=== PATIENT | female | born 1985 | race Caucasian/White ===

== ENCOUNTER 2022-02-09 10:00 | Emergency (ER) | payer MEDICAID, SELFPAY ==
[2022-02-09 10:23] VITALS: BP 129/82; PULSE 102; RESP 12; TEMP 36.9; O2SAT 95; BMI 32.4
--- NOTE | 2022-02-09 12:47 | CRLHL7_ITS ---
For Patients: As a result of the Cures Act, medical imaging exams and procedure reports are released immediately into your electronic medical record. You may view this report before your referring provider. If you have questions, please contact your health care provider. Indication: Pain, swelling. Technique: Right wrist 3 view. Comparison: None. Findings: No acute fracture or dislocation. Joint spaces are preserved. Soft tissues are unremarkable. Impression: No acute findings. Dictated by Demi Botello MD @ 02/09/2022 2:09:01 PM (Electronically Signed)
--- NOTE | 2022-02-09 12:47 | CRLHL7_ITS ---
For Patients: As a result of the Cures Act, medical imaging exams and procedure reports are released immediately into your electronic medical record. You may view this report before your referring provider. If you have questions, please contact your health care provider. Indication: Swelling, pain. Technique: Right hand 3 views. Comparison: None. Findings: No acute fracture or dislocation. Joint spaces are preserved. Soft tissues are unremarkable. Impression: No acute findings. Dictated by Demi Botello MD @ 02/09/2022 2:07:20 PM (Electronically Signed)
--- NOTE | 2022-02-09 12:48 | ED_ITS ---
HPI - General Adult General Chief complaint: Extremity Pain/Injury, Upper Stated complaint: Swollen painful right hand Time Seen by Provider: 02/09/22 10:59 History of Present Illness HPI narrative: This 36-year-old female comes in with pain and swelling in her right hand and wrist. She states that she woke up yesterday morning with these symptoms. She has pain with any kind of movement and has obvious swelling of her right hand and wrist. There is no increased erythema. She does not report any fevers. She has not had any strenuous activity or injury event to explain these symptoms. She does not describe any neck pain. She did have a suspicion in the past for carpal tunnel syndrome. Related Data Previous Rx's Medication Instructions Recorded cephalexin 500 mg capsule 500 mg PO TID 7 days #21 caps 02/09/22 hydrocodone 5 mg-acetaminophen 325 1 tab PO Q4-6H PRN pain #15 tabs 02/09/22 mg tablet methylprednisolone 4 mg tablets in See Rx Instructions PO .COMPLEX 02/09/22 a dose pack (Medrol (Marcell)) #21 ea Allergies Allergy/AdvReac Type Severity Reaction Status Date / Time No Known Drug Allergies Allergy Verified 02/09/22 10:28 Review of Systems Status of ROS: Reports: 10 or more systems reviewed and unremarkable except as noted in History and below Narrative: Constitutional: No fevers, no weight gain or loss. Eyes: No discharge. No vision changes. HENT: No congestion, no sore throat, no ear pain. Cardiovascular: No chest pain, no palpitations. Respiratory: No shortness of breath, no wheezes, no cough. Gastrointestinal: No abdominal pain, no vomiting, no diarrhea. Genitourinary: No dysuria, no hematuria. Musculoskeletal: Right hand and wrist pain with swelling. Range of motion is decreased as she has pain with any kind of movement. Skin: No rashes, no pruritis. Neurological: No dizziness, weakness, sensory change, speech change. Endo/Heme/Allergies: No bruising or bleeding. No polydipsia. Pysch: no suicidality, no anxiety, no insomnia. All other systems reviewed and are negative. PFSH PFSH Social History Smoking Status: Former smoker What tobacco products do you use: cigarettes Smoking quit date/years: <= 15 years ago How often do you have a drink containing alcohol: 4 or more times a week AUDIT-C Alcohol total score: 4 Non-prescribed substance use: denies use Exam Narrative: Exam Narrative: Constitutional: No fevers, no weight gain or loss. Eyes: No discharge. No vision changes. HENT: No congestion, no sore throat, no ear pain. Cardiovascular: No chest pain, no palpitations. Respiratory: No shortness of breath, no wheezes, no cough. Gastrointestinal: No abdominal pain, no vomiting, no diarrhea. Genitourinary: No dysuria, no hematuria. Musculoskeletal: Right hand, fingers, and wrist have diffuse swelling with distinct pain with any kind of movement of the wrist and finger joints. There is no erythema. Skin: No rashes, no pruritis. Neurological: No dizziness, weakness, sensory change, speech change. Endo/Heme/Allergies: No bruising or bleeding. No polydipsia. Pysch: no suicidality, no anxiety, no insomnia. All other systems reviewed and are negative. Const: Vital Signs, click to edit/add: Vital Signs - 24 hr 02/09/22 10:23 Temperature 98.4 F Pulse Rate [Pulse Oximeter] 102 H Respiratory Rate 12 Blood Pressure [Ri ght Upper Arm] 129/82 Pulse Oximetry 95 Oxygen Delivery Me thod Room Air Course Vital Signs Vital signs: Initial Vital Signs Temperature 98.4 F 02/09/22 10:23 Temperature Source Temporal Artery Scan 02/09/22 10:23 Pulse Rate 102 H 02/09/22 10:23 Pulse Rhythm 02/09/22 10:23 Respiratory Rate 12 02/09/22 10:23 Blood Pressure 129/82 02/09/22 10:23 Blood Pressure Mean 97 02/09/22 10:23 Blood Pressure Position Sitting 02/09/22 10:23 Pulse Oximetry 95 02/09/22 10:23 Oxygen Delivery Method 02/09/22 10:23 Vital Signs Temperature 98.4 F 02/09/22 10:23 Pulse Rate 102 H 02/09/22 10:23 Respiratory Rate 12 02/09/22 10:23 Blood Pressure 129/82 02/09/22 10:23 Pulse Oximetry 95 02/09/22 10:23 Oxygen Delivery Method 02/09/22 10:23 Temperature 98.4 F 02/09/22 10:23 Pulse Rate 102 H 02/09/22 10:23 Respiratory Rate 12 02/09/22 10:23 Blood Pressure 129/82 02/09/22 10:23 Pulse Oximetry 95 02/09/22 10:23 Oxygen Delivery Method 02/09/22 10:23 Medical Decision Making MDM Narrative Medical decision making narrative: This patient comes in with right hand and wrist pain. She does not have any injury event or strenuous activity to trigger these symptoms. She does not report any history of gout or family history of gout. She had trouble sleeping last night because of this discomfort. X-ray images show no sign of fracture or dislocation. Lab results also returned with normal white count, normal sed rate, and normal uric acid. Actually all lab results are in normal range. It is uncertain why this patient is having these symptoms but it is causing her ra ther significant pain. I did prescribe several medicines to potentially help her. She did receive a prescription for [place], Medrol Dosepak, and Keflex. She also received a wrist splint. Her symptoms are not typical for a a cellulitis but hopefully these medicines will cover what ever is causing it and bring resolution. I did instruct her regarding follow-up options if not improving or if worsening. Lab Data Labs: Lab Results 02/09/22 02/09/22 02/09/22 Range/Units 13:10 13:10 13:10 WBC 8.52 (4.50-11.00) K/uL RBC 4.30 (4.00-5.20) m/uL Hgb 14.1 (12.0-16.0) gm/dL Hct 41.8 (33.0-51.0) % MCV 97 (80-100) fL MCH 33 (26-34) pg MCHC 34 (32-36) gm/dL RDW Coeff of Jason 13.6 (11.5-15.5) % Plt Count 276 (140-440) K/uL Neut % (Auto) 66.8 (42.0-72.0) % Lymph % (Auto) 24.6 (20-44) % [place] % (Auto) 7.2 (0.0-11.0) % Eos % (Auto) 0.8 (0.0-7.0) % Baso % (Auto) 0.5 (0.0-3.0) % Neut # (Auto) 5.69 (1.7-7.0) K/uL Lymph # (Auto) 2.10 (0.90-2.90) K/uL [place] # (Auto) 0.60 (0.00-0.90) K/UL Eos # (Auto) 0.07 (0.00-0.50) K/uL Baso # (Auto) 0.04 (0.00-0.30) K/uL Abs Immat Gran (auto) 0.01 (0.00-0.30) K/uL ESR 18 (2-20) mm/hr Sodium 139 (135-149) mmol/L Potassium 3.8 (3.6-5.1) mmol/L Chloride 105 (96-114) mmol/L Carbon Dioxide 23 (20-32) mmol/L BUN 16 (5-24) mg/dL Creatinine 0.6 (0.5-1.5) mg/dL Estimated Creat Clear 114.09 Estimated GFR 121 ml/min Glucose 111 (60-115) mg/dL Uric Acid (2.2-8.4) mg/dL Calcium 9.6 (8.4-10.6) mg/dL 02/09/22 Range/Units 13:10 WBC (4.50-11.00) K/uL RBC (4.00-5.20) m/uL Hgb (12.0-16.0) gm/dL Hct (33.0-51.0) % MCV (80-100) fL MCH (26-34) pg MCHC (32-36) gm/dL RDW Coeff of Jason (11.5-15.5) % Plt Count (140-440) K/uL Neut % (Auto) (42.0-72.0) % Lymph % (Auto) (20-44) % Cris[place] % (Auto) (0.0-11.0) % Eos % (Auto) (0.0-7.0) % Baso % (Auto) (0.0-3.0) % Neut # (Auto) (1.7-7.0) K/uL Lymph # (Auto) (0.90-2.90) K/uL [place] # (Auto) (0.00-0.90) K/UL Eos # (Auto) (0.00-0.50) K/uL Baso # (Auto) (0.00-0.30) K/uL Abs Immat Gran (auto) (0.00-0.30) K/uL ESR (2-20) mm/hr Sodium (135-149) mmol/L Potassium (3.6-5.1) mmol/L Chloride (96-114) mmol/L Carbon Dioxide (20-32) mmol/L BUN (5-24) mg/dL Creatinine (0.5-1.5) mg/dL Estimated Creat Clear Estimated GFR ml/min Glucose (60-115) mg/dL Uric Acid 5.3 (2.2-8.4) mg/dL Calcium (8.4-10.6) mg/dL Imaging Data XR R Hand and Wrist: Radiologist's impression: No acute fracture or dislocation. Joint spaces are preserved. Soft tissues are unremarkable. Discharge Plan Discharge Clinical Impression: Right wrist pain Patient Disposition: Home, Self-Care Condition: Unchanged Additional Instructions: Wear wrist splint as needed. Take medications as needed and directed. Follow up with MD or return if worsening. Prescriptions: New hydrocodone-acetaminophen 5-325 mg tablet 1 tab PO Q4-6H PRN (Reason: pain) Qty: 15 0RF cephalexin 500 mg capsule 500 mg PO TID 7 Days Qty: 21 0RF methylprednisolone [Medrol (Marcell)] 4 mg tablets,dose pack See Rx Instructions .ROUTE .COMPLEX Qty: 21 0RF Rx Instructions: orally per package directions Follow Up/Referrals: Alexandria Cespedes MD [Primary Care Provider] - Stand Alone Forms: [employer] Info Instructions
[2022-02-09 13:21] LABS: Basophils Absolute Auto 0.04 K/uL (0.00-0.30); Basophils Percent Auto 0.5 % (0.0-3.0); Eosinophils Absolute Auto 0.07 K/uL (0.00-0.50); Eosinophils Percent Auto 0.8 % (0.0-7.0); Hematocrit 41.8 % (33.0-51.0); Hemoglobin* 14.1 gm/dL (12.0-16.0); Immature Granulocytes Abs Auto 0.01 K/uL (0.00-0.30); Lymphocytes Percent Auto 24.6 % (20-44); Mean Corpuscular HGB Conc 34 gm/dL (32-36); Mean Corpuscular Hemoglobin 33 pg (26-34); Mean Corpuscular Volume 97 fL (80-100); Monocytes Percent Auto 7.2 % (0.0-11.0); Neutrophils Absolute Auto 5.69 K/uL (1.7-7.0); Neutrophils Percent Auto 66.8 % (42.0-72.0); Platelet Count* 276 K/uL (140-440); RDW Coefficient of Variation % 13.6 % (11.5-15.5); White Blood Count* 8.52 K/uL (4.50-11.00)
[2022-02-09 13:22] LABS: Slide Review Reflex No
[2022-02-09 13:37] LABS: Chloride* 105 mmol/L (96-114)
[2022-02-09 13:38] LABS: Potassium* 3.8 mmol/L (3.6-5.1); Sodium* 139 mmol/L (135-149)
[2022-02-09 13:40] LABS: Creatinine* 0.6 mg/dL (0.5-1.5); Est. Creatinine Clearance* 114.09; Estimated Glomerular Filt Rate 121 ml/min
[2022-02-09 13:41] LABS: Blood Urea Nitrogen* 16 mg/dL (5-24); Calcium* 9.6 mg/dL (8.4-10.6); Carbon Dioxide* 23 mmol/L (20-32); Glucose* 111 mg/dL (60-115)
[2022-02-09 14:27] LABS: Uric Acid* 5.3 mg/dL (2.2-8.4)
[2022-02-09 14:31] LABS: Erythrocyte SedimentationRate* 18 mm/hr (2-20)
== END 2022-02-09 15:16 | disposition home or self-care (01) ==
PROVIDERS: Emergency Provider Emergency Medicine Emergency Medical Services; PCP Family Medicine
DX: M25.531 Pain in right wrist (principal)
CPT/HCPCS: 29125; 36415; 73110; 73130; 80048; 84550; 85025; 85651; 99284

== ENCOUNTER 2024-03-10 13:08 | Emergency (ER) | payer BC, SELFPAY ==
[2024-03-10 13:19] VITALS: BP 149/107; PULSE 73; RESP 22; TEMP 36.6; O2SAT 97; BMI 33.3
--- NOTE | 2024-03-10 13:45 | ED_ITS ---
HPI - Chest Pain General Time Seen by Provider: 13:45 Date Seen: 03/10/24 Chief Complaint: Chest Pain Stated Complaint: Chest pain, tunnel vision, high BP Time Seen by Provider: 03/10/24 13:19 Source: patient and RN notes reviewed Mode of arrival: ambulatory Limitations: no limitations History of Present Illness HPI narrative: This 38-year-old female is coming in after an episode that happened around 12:30 p.m. today. 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 She started to feel sweaty. She then had a brief episode where there was severe squeezing type substernal chest pain. She was able to maintain driving, this went away within about 30 seconds. She did feel some shortness of breath afterwards. Her is studying for [employer], she talked to him after she got home. She did have a fall and tripped landing on concrete stairs on the 6th, 2 days ago. She had bruising of her right right hip area, bruised her left knee. She really did not think too much of this except when she had this spell, her thought of possible blood clots. They decided to come in to get checked out. She has never had anything like this in the past. The chest pain and did not initiate this episode, came at the end of it. She has had no calf pain or swelling. Her has had vasectomy, no chance for . She is not using any contraceptives. Related Data Home Medications ?Medication ?Instructions ?Recorded ?Confirmed dextromethorphan-guaifenesin 10 2 tab-cap PO Q6H PRN 08/14/22 12/19/23 mg-200 mg capsule (Coricidin HBP Chest Congestion-Cough) Previous Rx's ?Medication ?Instructions ?Recorded albuterol sulfate 90 mcg/actuation 2 puff inhalation Q6H PRN 08/08/22 aerosol inhaler shortness of breath or wheezing #6.7 grams benzonatate 200 mg capsule 200 mg PO BID-TID PRN cough #14 08/08/22 caps Allergies Allergy/AdvReac Type Severity Reaction Status Date / Time No Known Drug Allergies Allergy Verified 03/10/24 14:26 Review of Systems Status of ROS Reports: 6 or more systems reviewed and unremarkable except as noted in History and below [facility] Social History Smoking Status: Former smoker What tobacco products do you use: cigarettes Smoking quit date/years: <= 15 years ago How often do you have a drink containing alcohol: 4 or more times a week AUDIT-C Alcohol total score: 4 Non-prescribed substance use: denies use Exam Const Vital Signs, click to edit/add: Vital Signs - 24 hr 03/10/24 13:19 03/10/24 13:53 Temperature 98 F Pulse Rate [Pulse Oximeter] 73 Respiratory Rate 22 Blood Pressure [Right Upper Arm] 149/107 H Pulse Oximetry 97 98 Oxygen Delivery Method Room Air Marline is a very pleasant 38-year-old female, she is alert, interactive, no apparent distress. Pupils equal round, sclera clear, conjugate gaze. Symmetrical facial function, speech normal. Lungs are clear, good air entry, no wheezing or crackles, no tachypnea. CV regular rate and rhythm, no murmur, normal S1-S2 no S3-S4. Abdomen is soft, nontender. She has no pretibial edema, no calf tenderness. Patient was ambulatory into the ED of her own accord. Documenting provider has reviewed patient's vital signs: yes Course Course ED Course: This 38-year-old female is presenting with what sounds to be presyncope. This does not sound like this is anxiety or panic attack given the presentation of the symptoms. Have discussed with her doing the D-dimer and waiting to see what the result is, upon review of this she has opted to just do the chest CT PE protocol which I think is reasonable in this situation as workup for presyncope. She did have recent trauma and it is there medical that there could have been a blood clot that caused a pulmonary embolus with some resolution already. Will obtain a troponin. She is aware that she will need a follow-up troponin about 3:30 p.m. for 3 hour interval. Right now she is hemodynamically stable but will have her on cardiac monitoring and pulse oximetry while here. Will follow the cardiac monitoring to ensure no arrhythmia. Reevaluation(s) Time of Reevaluation #1: 15:22 Reevaluation #1: Have reviewed normal labs to this point with patient. Chest CT is not showing any pulmonary emboli. Did review the secondary finding of the pneumonitis. She has not been sick with anything, no cough or cold symptoms. I would favor observation given normal labs and no evidence of infection. This is likely not evidence of any active pneumonia. She is aware if she does start coughing or becoming ill, needs re-evaluation for potential pneumonia and consideration of antibiotics. We discussed that she would get her follow-up troponin shortly here, if normal discharge to home. I would consider this presyncope and in evaluation of presyncope or syncope, recurrent episode do need to be re- evaluated. Time of Reevaluation #2: 16:04 Reevaluation #2: Follow-up troponin is normal, patient will discharge to home. Vital Signs Vital signs: Initial Vital Signs Temperature 98 F 03/10/24 13:19 Temperature Source Temporal Artery Scan 03/10/24 13:19 Pulse Rate 73 03/10/24 13:19 Pulse Rhythm Regular 03/10/24 13:19 Respiratory Rate 22 03/10/24 13:19 Blood Pressure 149/107 H 03/10/24 13:19 Blood Pressure Mean 121 H 03/10/24 13:19 Blood Pressure Position Supine 03/10/24 13:19 Pulse Oximetry 97 03/10/24 13:19 Oxygen Delivery Method Room Air 03/10/24 13:19 Vital Signs Temperature 98 F 03/10/24 13:19 Pulse Rate 73 03/10/24 13:19 Respiratory Rate 22 03/10/24 13:19 Blood Pressure 149/107 H 03/10/24 13:19 Pulse Oximetry 97 03/10/24 13:19 Oxygen Delivery Method Room Air 03/10/24 13:19 Temperature 98 F 03/10/24 13:19 Pulse Rate 73 03/10/24 13:19 Respiratory Rate 22 03/10/24 13:19 Blood Pressure 149/107 H 03/10/24 13:19 Pulse Oximetry 98 03/10/24 13:53 Oxygen Delivery Method Room Air 03/10/24 13:19 MDM - Chest Pain Lab Data Attestation: I reviewed the patient's lab results. Labs: Lab Results 03/10/24 03/10/24 03/10/24 Range/Units 13:54 14:24 15:30 WBC 7.70 (4.50-11.00) K/uL RBC 4.24 (4.00-5.20) m/uL Hgb 13.8 (12.0-16.0) gm/dL Hct 41.3 (33.0-51.0) % MCV 97 (80-100) fL MCH 33 (26-34) pg MCHC 33 (32-36) gm/dL RDW Coeff of Jsaon 13.0 (11.5-15.5) % Plt Count 207 (140-440) K/uL Neut % (Auto) 62.0 (42.0-72.0) % Lymph % (Auto) 30.0 (20-44) % [place] % (Auto) 6.6 (0.0-11.0) % Eos % (Auto) 1.0 (0.0-7.0) % Baso % (Auto) 0.4 (0.0-3.0) % Neut # (Auto) 4.77 (1.7-7.0) K/uL Lymph # (Auto) 2.31 (0.90-2.90) K/uL [place] # (Auto) 0.50 (0.00-0.90) K/UL Eos # (Auto) 0.08 (0.00-0.50) K/uL Baso # (Auto) 0.03 (0.00-0.30) K/uL Abs Immat Gran (auto) 0.00 (0.00-0.30) K/uL Imm/Tot Granulo (auto) 0.0 % D-Dimer Quant (PE/DVT) < 0.27 (0.00-0.50) ug/ml VBG pH 7.382 (7.32-7.43) VBG pCO2 45 (40-50) mmHG VBG pO2 31.0 (25-47) mmHG VBG HCO3 27 (21-28) mmol/L Sodium 137 (135-149) mmol/L Potassium 4.0 (3.6-5.1) mmol/L Chloride 101 (96-114) mmol/L Carbon Dioxide 25 (20-32) mmol/L Anion Gap 11 (7-15) mEq/L BUN 12 (5-24) mg/dL Creatinine 0.5 (0.5-1.5) mg/dL Estimated Creat Clear 139.97 Estimated GFR 125 ml/min Glucose 95 (60-115) mg/dL Calcium 9.3 (8.4-10.6) mg/dL Total Bilirubin 0.4 (0.1-1.5) mg/dL AST 23 (12-35) U/L ALT 28 (4-35) U/L Alkaline Phosphatase 82 (40-150) U/L Troponin I < 0.01 L (0.01-0.04) ng/mL NT-Pro-B Natriuret Pep 32 pg/mL Total Protein 7.7 (6.0-8.3) g/dL Albumin 4.7 (3.3-5.0) g/dL POC Troponin I 0.00 L 0.00 L (0.01-0.04) ng/ml Imaging Data CT scan - chest: Attestation: I have reviewed the pertinent imaging results. Radiologist's impression: Patient: MARLINE KOWALSKI Facility:?[facility] Patient ID:?[id number] Site Patient ID:?[id number]. Site :?[id number] Study:?CT-Chest Angio PE 95CC ISOVUE 370-03/10/2024 2:34:28 PM Ordering Physician:?Yadiel Mcmillan Final Report: Indication: Presyncopal episode, tunnel vision, shortness of breath and chest pain Technique: Volumetric multidetector CT images of the chest were obtained after the administration of IV contrast. 95 cc Isovue 370 low osmolar intravenous contrast Comparison: None available. Findings: The thoracic inlet and thyroid gland are unremarkable. The thoracic aorta is nonaneurysmal. There is no central filling defect to suggest pulmonary embolism. There is no mediastinal, hilar or axillary adenopathy. There is mild central bronchial thickening. There is minimal basilar atelectasis and parenchymal scar with mild ground-glass opacity seen in the lower lobes which may represent minimal pneumonitis changes. There is a 4.5 millimeter pulmonary nodule along the right pleural convexity seen on series 6, image 95. The partially visualized upper abdominal viscera are within normal limits. The thoracic vertebral body heights are grossly maintained with mild multilevel degenerative disc disease. There is no significant spondylolisthesis or displaced fracture. Impression: Mild central bronchial thickening and dependent atelectasis with minimal likely pneumonitis changes. No evidence of pulmonary embolus or dense consolidation. Please note that all CT scans at this facility use dose modulation, iterative reconstruction, and/or weight-based dosing when appropriate to reduce radiation dose to as low as reasonably achievable. Dictated by Anthony Shane MD @ 03/10/2024 2:50:18 PM (Electronic Signature) ECG Data Attestation: I personally reviewed and interpreted this ECG as follows: (Normal sinus rhythm, 70 beats per minute. QT corrected for and 56 milliseconds. No ischemic change, no infarct.) ECG interpretation date: 03/10/24 ECG interpretation time: 13:46 Discharge Plan Discharge Clinical Impression: Pre-syncope Instructions: Syncope (ED), Near Syncope (ED) Additional Instructions: Please schedule follow-up with your primary care provider within the next week. If you have any recurrence of these symptoms, do recommend re-evaluation in the interim. I certainly would consider having you do outpatient monitoring with a ZIO patch if there is any evidence of further episodes. Activity Level: Activity as Tolerated Prescriptions: No Action Coricidin HBP Chest Arjun-Cough 10-200 mg capsule 2 tab-cap PO Q6H PRN albuterol sulfate 90 mcg/actuation HFA aerosol inhaler 2 puff inhalation Q6H PRN (Reason: shortness of breath or wheezing) Qty: 6.7 0RF benzonatate 200 mg capsule 200 mg PO BID-TID PRN (Reason: cough) Qty: 14 0RF Follow Up/Referrals: Alexandria Cesepdes MD [Primary Care Provider] - Stand Alone Forms: [employer] Info Instructions
[2024-03-10 13:53] VITALS: O2SAT 98
--- NOTE | 2024-03-10 13:53 | CRLHL7_ITS ---
For Patients: As a result of the Century Cures Act, medical imaging exams and procedure reports are released immediately into your electronic medical record. You may view this report before your referring provider. If you have questions, please contact your health care provider. Indication: Presyncopal episode, tunnel vision, shortness of breath and chest pain Technique: Volumetric multidetector CT images of the chest were obtained after the administration of IV contrast. 95 cc Isovue 370 low osmolar intravenous contrast Comparison: None available. Findings: The thoracic inlet and thyroid gland are unremarkable. The thoracic aorta is nonaneurysmal. There is no central filling defect to suggest pulmonary embolism. There is no mediastinal, hilar or axillary adenopathy. There is mild central bronchial thickening. There is minimal basilar atelectasis and parenchymal scar with mild ground-glass opacity seen in the lower lobes which may represent minimal pneumonitis changes. There is a 4.5 millimeter pulmonary nodule along the right pleural convexity seen on series 6, image 95. The partially visualized upper abdominal viscera are within normal limits. The thoracic vertebral body heights are grossly maintained with mild multilevel degenerative disc disease. There is no significant spondylolisthesis or displaced fracture. Impression: Mild central bronchial thickening and dependent atelectasis with minimal likely pneumonitis changes. No evidence of pulmonary embolus or dense consolidation. Please note that all CT scans at this facility use dose modulation, iterative reconstruction, and/or weight-based dosing when appropriate to reduce radiation dose to as low as reasonably achievable. Dictated by Anthony Shane MD @ 03/10/2024 2:50:18 PM (Electronically Signed)
[2024-03-10 14:32] LABS: HCO3 VBG 27 mmol/L (21-28); PCO2 VBG 45 mmHG (40-50); pH VBG 7.382 (7.32-7.43)
[2024-03-10 14:33] LABS: Basophils Absolute Auto 0.03 K/uL (0.00-0.30); Basophils Percent Auto 0.4 % (0.0-3.0); Eosinophils Absolute Auto 0.08 K/uL (0.00-0.50); Hematocrit 41.3 % (33.0-51.0); Hemoglobin* 13.8 gm/dL (12.0-16.0); Lymphocytes Absolute Auto 2.31 K/uL (0.90-2.90); Mean Corpuscular HGB Conc 33 gm/dL (32-36); Mean Corpuscular Hemoglobin 33 pg (26-34); Mean Corpuscular Volume 97 fL (80-100); Monocytes Percent Auto 6.6 % (0.0-11.0); Neutrophils Absolute Auto 4.77 K/uL (1.7-7.0); Platelet Count* 207 K/uL (140-440); Red Blood Count 4.24 m/uL (4.00-5.20)
[2024-03-10 14:37] LABS: Slide Review Reflex No
[2024-03-10 14:48] LABS: Albumin* 4.7 g/dL (3.3-5.0); Chloride* 101 mmol/L (96-114); Sodium* 137 mmol/L (135-149)
[2024-03-10 14:51] LABS: Alkaline Phosphatase* 82 U/L (40-150); Anion Gap 11 mEq/L (7-15); Aspartate Amino Transferase* 23 U/L (12-35); Bilirubin Total* 0.4 mg/dL (0.1-1.5); Blood Urea Nitrogen* 12 mg/dL (5-24); Carbon Dioxide* 25 mmol/L (20-32); Creatinine* 0.5 mg/dL (0.5-1.5); Est. Creatinine Clearance* 139.97; Estimated Glomerular Filt Rate 125 ml/min; Total Protein* 7.7 g/dL (6.0-8.3)
[2024-03-10 14:52] LABS: Alanine Aminotransferase* 28 U/L (4-35); Calcium* 9.3 mg/dL (8.4-10.6); Glucose* 95 mg/dL (60-115)
[2024-03-10 14:57] LABS: D Dimer Quantitative* < 0.27 ug/ml (0.00-0.50)
[2024-03-10 15:10] LABS: NT Pro B Type NatriureticPept* 32 pg/mL; Troponin I* < 0.01 ng/mL (0.01-0.04)
== END 2024-03-10 16:17 | disposition home or self-care (01) ==
PROVIDERS: Emergency Provider Family Medicine; PCP Family Medicine
DX: R55 Syncope and collapse (principal)
CPT/HCPCS: 36415; 71275; 80053; 82803; 83880; 84484; 85025; 85379; 93005; 99284; 99285; Q9967

== ENCOUNTER 2024-10-06 14:04 | Emergency (ER) | payer MEDICAID, SELFPAY ==
[2024-10-06 14:07] VITALS: BP 167/103; PULSE 74; RESP 18; TEMP 36.9; O2SAT 97; BMI 34.3
--- OUTSIDE RECORDS SUMMARY | 2024-10-06 14:07 | XMS_ITS | Continuity of Care Document ---
Author Organization [facility] Address [address] [facility] [address] [place] [address] Assessment Encounter Date Assessment Date Assessment LastModified by Organization Details LastModified Time 10/03/2024 10/03/2024 ASSESSMENT: Patient is a good candidate for conservative care and the prognosis is for a favorable outcome that achieves the patients' goals. We discussed etiology, activity modifications, home care, and other treatment options. Initially, it is recommended that the patient receive in-office treatment 1 times per week for 8 weeks at which time a re-evaluation will be performed to determine an appropriate change in plan. Initially, treatment will focus on joint manipulation to restore range of motion and reduce pain. We will slowly progress to therapeutic exercises and activities to improve function, strength, and stability may also be used as warranted. If the patient is not responding as expected, more invasive procedures will be discussed along with a referral. All considerations above were discussed with the patient and questions answered to satisfaction. If the patient should have any additional questions, or should the condition evolve or worsen, the patient should not hesitate to contact our office. [email or web address] Not available 10/03/2024 17:30:44 Plan of Treatment Reminders Order Date Submit Date Provider Last Modified By Organization Details Last Modified Time Details Appointments DC Treatment 05 2024 08:30A M Neymar Ayoub DC Not available Not available Not available Lab None recorded. Referral None recorded. Procedures None recorded. Surgeries None recorded. Imaging None recorded. Medication Orders None recorded. Patient TargetsNo targets recorded. Patient InstructionsNo instructions recorded. Reason for Referral None Reported. Problems Name Problem SNOMED Code Status Onset Date Resolution Date Notes Provider Name and Address Organization Details Recorded Time Lumbar segmental dysfunction 256575195 Active 2024 Neymar Ayoub DC [address] [facility], [place], [address] , [place] [facility] 5 17:25:53 Cervical segmental dysfunction 529539529 Active 2024 Not Available [facility] 5 11:22:32 Neck pain 99231065 Active 2024 Not Available [facility] 5 11:22:32 Thoracic segmental dysfunction 864437225 Active 2024 Neymar Ayoub DC [address] [facility], [place], [address] , [facility] - [facility] 5 17:25:53 Low back pain 995198435 Active 2024 Not Available [facility] 5 11:22:32 Somatic dysfunction of sacral spine 837348568 Active 2024 Not Available [facility] 11:22:32 Lesion of lumbar spine 474288503 Active 2024 Albert Pete DC [address] [facility], [place], [address] , [facility] - [facility] 5 17:30:45 Problem Notes None recorded. Procedures Surgical History Date Name Laterality Status Provider Name and Address Organization Details Recorded Time 5 57163: Spinal manipulation , 3 to 4 regions completed Neymar Ayoub DC [address] [facility], [place], [address], [facility] - [facility] 10/06/2024 09:42:26 5 58171: Spinal manipulation , 3 to 4 regions completed Albert Pete DC [address] [facility], [place], [address], [facility] 10/03/2024 17:31:18 5 51489: Spinal manipulation , 3 to 4 regions completed Neymar Ayoub DC [address] [facility], [place], [address], [facility] 06/23/2024 13:04:18 5 93696: Spinal manipulation , 3 to 4 regions completed Neymar Wang [place] [address] [facility], [place], [address], [facility] 06/16/2024 09:28:48 5 21429: Spinal manipulation , 3 to 4 regions completed Neymar Short [place] [address] [facility], [place], [address], [facility] 06/12/2024 09:37:10 5 68593: Spinal manipulation , 3 to 4 regions completed Neymar Wang [place] [address] [facility], [place], [address], [facility] 06/09/2024 18:52:18 5 11964: Spinal manipulation , 3 to 4 regions completed Neymar Han [place] [address] [facility], [place], [address], [facility] 05/22/2024 10:59:23 5 57141: Spinal manipulation , 3 to 4 regions completed Neymar Han [place] [address] [facility], [place], [address], [facility] 05/18/2024 17:27:21 Imaging Results None recorded. Procedure Notes None recorded. Medical Equipment None Reported. Vitals None Recorded Social History None recorded. Functional Status None recorded. Mental Status None recorded. Family History Nothing Reported. Medical History No medical history recorded. Gynecological HistoryNo gynecological history recorded. Obstetrics History GPAL:G 0 P 0 0 0 0 Past Encounters Encounter ID Performer Location Encounter Start Date Encounter Closed Date Diagnosis/Indication Diagnosis SNOMED-CT Code Diagnosis ICD10 Code Diagnosis Note [id number] Albert Donis FÉLIX Pete [facility] [address] [facility] [place] [address] 10/03/2024 16:33:28 10/03/2024 17:34:25 Cervical segmental dysfunction 895186805 M99.01 Neck pain 48554916 M54.2 Thoracic s egmental dysfunction 141801133 M99.02 Lumbar seg mental dysfunction 268813481 M99.03 Lesion of lumbar spine 311658918 M99.01 Health Concerns Section Related Observation LastModified by Organization Detai ls LastModified Time None Recorded Concern Status LastModified by Organization Details LastModified Time None Recorded Payers Encounter Date Sequence Insurance Name Policy Number Policy Haider Covered Member ID Haider Member ID Guarantor Name 10/03/2024 [facility] Marline Neely [id number] Marline Neely Notes Date Note Type Note Provider Name and Address Organization Details Recorded Time 10/03/2024 text/html HPI - Cervical SpineReported bypatient.Location: left Quality:aching Severity:moderate Duration:2 weeks Timing:gradual Alleviating Factors:ice Aggravating Factors:sitting Associated Symptoms:no numbness/tingling Scot Donis Pete DC [address] [facility], [place], [address], [facility] - [facility] 10/03/2024 17:31:29 OBGyn Episode No OBEpisode recorded.
--- OUTSIDE RECORDS SUMMARY | 2024-10-06 14:07 | XMS_ITS | Continuity of Care Document ---
Author Organization [place] [facility] Address [address] [facility] [address] [place] [address] Assessment Encounter Date Assessment Date Assessment LastModified by Organization Details LastModified Time 10/06/2024 10/06/2024 ASSESSMENT: Patient is a good candidate for [...] should not hesitate to contact our office. ASSESSMENT: Patient is a good candidate for [...] should not hesitate to contact our office. [email or web address] Not available 10/06/2024 09:52:28 Plan of Treatment Reminders Order Date Submit [...] Organization Details Recorded Time Lumbar segmental dysfunction 822720633 Active 2024 Neymar Ayoub DC [address] [place] [address], [place], [address] , [facility] 5 17:25:53 Cervical segmental dysfunction 779549710 Active 2024 Not Available [facility] 5 11:22:32 Neck pain 04404890 Active 2024 Not Available [facility] 5 11:22:32 Thoracic segmental dysfunction 043862967 Active 2024 Neymar Ayoub DC [address] [place] [address], [place], [address] , [facility] 5 17:25:53 Low back pain 858255217 Active 2024 Not Available [facility] 5 11:22:32 Somatic dysfunction of sacral spine 048271479 Active 2024 Not Available [facility] 5 11:22:32 Lesion of lumbar spine 670663794 Active 2024 Albert Finchmekhi [address], [place], [address] , [facility] 17:30:45 Problem Notes None recorded. Procedures Surgical History Date Name Laterality Status Provider Name and Address Organization Details Recorded Time 5 40058: Spinal manipulation , 3 to 4 regions completed Neymar Ayoub DC [address] [facility], [place], [address], [facility] 10/06/2024 09:42:26 5 21973: Spinal manipulation , 3 to 4 regions completed Albert Donis FinchFÉLIX gaming [address] [facility], [place], [address], [facility] hospital 10/03/2024 17:31:18 5 30782: Spinal manipulation , 3 to 4 regions completed Neymardedra Ayoub DC [address] [facility], [place], [address], [facility] 06/23/2024 13:04:18 5 71981: Spinal manipulation , 3 to 4 regions completed Neymardedra Ayoub DC [address] [facility], [place], [address], [facility] 06/16/2024 09:28:48 5 22568: Spinal manipulation , 3 to 4 regions completed Neymar Ayoub DC [address] [facility], [place], [address], [facility] 06/12/2024 09:37:10 5 81934: Spinal manipulation , 3 to 4 regions completed Neymar Han FÉLIX Ayoub [address] [facility], [place], [address], [facility] 06/09/2024 18:52:18 5 54296: Spinal manipulation , 3 to 4 regions completed Neymar Ayoub DC [address] [facility], [place], [address], [facility] 05/22/2024 10:59:23 5 09982: Spinal manipulation , 3 to 4 regions completed Neymar Han FÉLIX Ayoub [address] [facility], [place], [address], [facility] hospital 05/18/2024 17:27:21 Imaging Results None recorded. Procedure [...] SNOMED-CT Code Diagnosis ICD10 Code Diagnosis Note [id number] Albert Dykes FÉLIX Pete [facility] [address] [facility] [place] [address] 10/03/2024 16:33:28 10/03/2024 17:34:25 Cervical segmental dysfunction 679120013 M99.01 Neck pain 68677938 M54.2 Thoracic s egmental dysfunction 833087980 M99.02 Lumbar seg mental dysfunction 424459066 M99.03 Lesion of lumbar spine 638401649 M99.01 [id number] Neymar Han Ayoub DC [facility] [address] [facility] [place] [address] 10/06/2024 09:33:31 10/06/2024 10:06:50 Cervical segmental dysfunction 508124199 M99.01 Neck pain 06530892 M54.2 Thoracic s egmental dysfunction 627606683 M99.02 Lumbar seg mental dysfunction 285485034 M99.03 Lesion of lumbar spine 951558784 M99.01 Low back pain 317588448 M54.50 Somatic dy sfunction of sacral spine 726370475 M99.04 Health Concerns Section Related Observation LastModified by Organization Detai ls LastModified Time None Recorded Concern Status LastModified by Organization Details LastModified Time None Recorded Payers Encounter Date Sequence Insurance Name Policy Number Policy Haider Covered Member ID Haider Member ID Guarantor Name 10/06/2024 [facility] Marline Mojicashakeel [id number] [facility] Notes Date Note Type Note Provider Name and Address Organization Details Recorded Time 10/06/2024 text/html HPI - Cervical SpineReported bypatient.Location: left Quality:aching Severity:moderate Duration:2 weeks Timing:gradual Alleviating Factors:ice Aggravating Factors:sitting Associated Symptoms:no numbness/tinglingHP I - Lumbar SpineReported bypatient.Location: right; With radiation to knee Quality:aching Severity:not changing; moderate Timing:cannot identify Duration:chronic Context:cannot identify Aggravating Factors:twisting; bending/squatting Alleviating Factors:rest Neymar Ayoub DC [address] [facility], [place], [address], [facility] 10/06/2024 10:05:01 OBGyn Episode No OBEpisode recorded.
--- OUTSIDE RECORDS SUMMARY | 2024-10-06 14:07 | XMS_ITS | Clinical Summary ---
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 Blood products may be delayed. Draw 2 purple and 1 red top tubes for all Type/Screen/Crossma tch orders. Medications albuterol HFA (PRO-AIR; VENTOLIN; PROVENTIL) 90 mcg/actuation inhalerIndicati ons:Acute cough,Bronchiti s Inhale 1-2 Puffs by mouth every 4 hours if needed for Shortness Of Breath. 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 RhoGam given in 1st trimester ED. +D antibody noted in August, no additional rhogam given. Farideh Galvan MD Supervision of other normal , antepartum 05/23/2015 10/05/2022 Supervision of normal first 10/01/2011 07/16/2015 Overview (05/06/2012): TDaP and Influenza given 02/05/2012. Rh Negative It's a girl! GBS negative HEMOGLOBIN (g/dL) Date Value 04/29/2012 10.6* Contusion of knee 12/13/2009 10/05/2022 Encounters Date Type Department Care Team Description 10/06/2024 Travel from Last 3 Months Immunizations Immunization Administration Dates Next Due Influenza, IIV3 (Age >=3 years) 02/05/2012 Tdap 02/12/2021,02/05/2012 Family History Medical History Relation Name Comments Cancer-breast No Family History Social History Tobacco Use Types Packs/Day Years Used Date Smoking Tobacco: Former Cigarettes Q uit: 07/01/2010 Smokeless Tobacco: Never Tobacco Cessation:Counseling Given: Not Answered Alcohol Use Standard Drinks/Week Comments No 0 (1 standard drink = 0.6 oz pur e alcohol) PHQ-2 Answer Date Recorded PHQ-2 TOTAL SCORE 3 05/05/2023 Social Connections Answer Date Recorded Do you often feel lonely or isolated from those around you? 0 02/07/2024 Financial Resource Strain Answer Date R ecorded Difficulty of Paying Living Expenses 3 02/07/2024 Difficulty of Paying Living Expenses Not on file 02/07/2024 Food Insecurity Answer Date Recorded Do you worry your food will run out before you are able to buy more? 1 02/07/2024 Transportation Needs Answer Date Record ed Does lack of transportation keep you from medica l appointments? 1 02/07/2024 Does lack of transportation keep you from work, meetings or getting things that you need? 1 02/07/2024 Housing Stability Answer Date Recorded What is your housing situation today? 1 02/07/2024 Utilities Answer Date Recorded Do you have trouble paying f or utilities (for example, heat, electricity, water, phone)? 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 Dilated to 9.5 cm. Last Filed Vital Signs Vital Sign Reading Time Taken Comments Blood Pressure 121/86 03/16/2024 11:41 AM WELL BLOWER Pulse 81 03/16/2024 11:41 AM WELL BLOWER Temperature 36.7 C (98 F) 10/05/2022 2:44 PM CDT Respiratory Rate 22 04/21/2022 3:00 PM WELL BLOWER Oxygen Saturation 96% 03/16/2024 11: 41 AM WELL BLOWER Inhaled Oxygen Concentration - - Weight 95.6 kg (210 lb 12.8 oz) 024 11:41 AM WELL BLOWER Height 162.6 cm (5' 4) 11/18/2022 10:0 9 AM CDT Body Mass Index 36.18 11/18/2022 10:09 AM CDT Plan of Treatment Health Maintenance Due Date Last Done Comments Hepatitis B series for 19+ (1 of 3 - 19+ 3-dose series) 08/29/2006 Pap test for age 21-65 09/25/2023 , 09/24/2020, 06/18/2015, Additional history exists BMI (ht and wt on same day) for age 18+ 11/19/2023 11/18/2022, 10/05/2022, 05/25/2016, Additional history exists COVID-19 vaccine series ( season) 2024 Depression screening for age 12+ 05/05/2024 05/05/2023, 11/18/2022, 10/05/2022, Additional history exists Influenza Vaccine (Season Ended) 2025 02/05/2012 Tetanus booster 02/12/2031 02/12/2021, 02/05/2012 Hepatitis C screening for age 18-79 Completed 11/07/2014 HIV for age 15-65 Completed 05/23/2015, , 10/01/2011 Tdap Completed 02/12/2021, 02/05/2012 Pneumococcal series for age 6-49 Aged Out No longer eligible based on patient's age to complete this topic Procedures Procedure Name Priority Date/Time Associated Diagnosis Comments DOOR GLASS INSTALLER THIN PREP PAP SCREEN IMAGED Routine 09/24/2020 12:00 PM CDT ANTI HIV 1/2 Routine 05/23/2015 5:48 PM WE[facility]OWER Supervision of normal , first trimester ANTI HCV Routine 11/07/2014 4:10 PM CDT Needle stick injury from Last 3 Months or Most Recently Relevant to Health Maintenance Results * DOOR GLASS INSTALLER THIN PREP PAP SCREEN IMAGED (09/24/2020 12:00 PM CDT) Case Report Gynecologic Cytology Report Case: [id number] Authorizing Provider: Yadi Quiroga PA-C Collected: 09/24/2020 1200 Ordering Location: [facility] Received: 09/25/2020 0823 First Screen: Roshan Mac Specimen: DOOR GLASS INSTALLER ThinPrep Vial Screening, Cervical/Vaginal 10/02/2020 12:48 PM CDT [facility] INTERPRETATION/ RESULT NEGATIVE FOR INTRAEPITHELIAL LESION OR MALIGNANCY (NIL) (none) 10/02/2020 12:48 PM CDT [facility] at 1248 CDT SPECIMEN ADEQUACY Satisfactory for evaluation No endocervical component seen 10/02/2020 12:48 PM CDT [facility] HPV REQUEST HPV and PAP 10/02/2020 12:48 PM CDT [facility] Date of LMP 07/12/2020 10/02/2020 12:48 PM CDT [facility] Last Pap Date 06/18/2015 10/02/2020 12:48 PM CDT [facility] Last Pap Result NIL 12:48 PM CDT [facility] Additional Information 10/02/2020 12:48 PM CDT [facility] Comment: Interpreted at [facility] - [address] [place] [address], [place] [address] Automated Review Successful 10/02/2020 12:48 PM CDT [facility] Comment:Specimen processed s uccessfully by automated loader malt house device, [employer] System, [employer] ANCILLARY TESTING DOOR GLASS INSTALLER HPV Ordered, Please see separate report 10/02/2020 12:[address] [facility] Note The pap test is a screening technique, not a diagnostic procedure. It is used primarily to screen for squamous cancers and precursor lesions. Published studies have shown that it is subject to both false negative and false positive results. The pap test should not be used as the sole means to diagnose or exclude pre-malignant and malignant lesions. 10/02/2020 12:48 PM CDT [facility] Other (Cervical/Vagina l) 09/24/2020 12:00 PM CDT 09/25/2020 8:23 AM CDT August L Junaid GARCIA PATHOLOGY/CYTOLOGY Final R esult [facility] [address] [place] [address], [place] * ANTI HIV 1/2 (05/23/2015 5:48 PM WELL BLOWER) HIV-1/HIV-2 ANTIBODY Non-Reacti ve Non-Reacti ve 05/24/2015 1:34 PM WE[facility]OWER [facility] Blood specimen (specimen) BLOOD SPECIMEN / Unknown Venipuncture / Unknown 05/23/2015 5:48 PM WELL BLOWER 05/23/2015 5:48 PM WELL BLOWER Narrative [facility] - 05/24/2015 1:34 PM WELL BLOWER HIV-1 p24 and HIV-1/HIV-2 Ab not detected Uma Adams NUMERICAL CONTROL TOOL PROGRAMMER SEND OUTS F inal Result [facility] [address] [place] [address], * ANTI HCV (11/07/2014 4:10 PM CDT) HEPATITIS C ANTIBODY Non-Reacti ve Non-Reacti ve 11/08/2014 1:49 PM CDT [facility] Blood specimen (specimen) BLOOD SPECIMEN / Unknown Butterfly / Unknown 11/07/2014 4:10 PM CDT 11/07/2014 4:10 PM CDT Narrative [facility] - 11/08/2014 1:49 PM CDT Antibodies to HCV not detected; does not exclude the possibility of exposure to HCV. us Alexandria Cespedes MD SEND OUTS Final R esult Performing Organization Address City/[facility]/ZIP Co de Phone Number [facility] [address] [place] [address], from Last 3 Months or Most Recently Relevant to Health Maintenance Insurance [facility] [place] Care Teams Office Services Representative Relationship Specialty Start Date End Date Alexandria Cespedes MD [address] [place] [id number] PCP - General Family Practice 03/06/11
--- OUTSIDE RECORDS SUMMARY | 2024-10-06 14:07 | XMS_ITS | Data Portability ---
Author Organization [place] - [employer] [employer] e, autoContract - E BOARDZ [facility] Address [address] [facility] [address] [place] [address] Assessment Encounter Date Assessment Date Assessment LastModified by Organization Details LastModified Time 06/12/2024 06/12/2024 ASSESSMENT: Patient is a good candidate for [...] to contact our office. ecram Not available 06/12/2024 09:37:10 06/16/2024 06/16/2024 ASSESSMENT: Patient is a good candidate for [...] to contact our office. ecram Not available 06/16/2024 09:28:48 06/23/2024 06/23/2024 ASSESSMENT: Patient is a good candidate for [...] to contact our office. ecram Not available 06/23/2024 13:04:18 10/03/2024 10/03/2024 ASSESSMENT: Patient is a good [...] our office. 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 Active 2024 Neymar Ayoub DC [address] [facility], [place], [address] , [facility] 17:25:53 Cervical segmental dysfunction 807703768 Active 2024 Not Available [facility] 11:22:32 Neck pain 98757312 Active 2024 Not Available Critical access hospital 11:22:32 Thoracic segmental dysfunction 956606816 Active 2024 Neymar Ayoub DC [address] [place] [address], [place], [address] , [facility] 17:25:53 Low back pain 256566423 Active 2024 Not Available [facility] 11:22:32 Somatic dysfunction of sacral spine 897984613 Active 2024 Not Available Critical access hospital 11:22:32 Lesion of lumbar spine 260063877 Active 2024 Albert Pete DC [address] [place] [address], [place], [address] , [facility] 17:30:45 Problem Notes None recorded. Procedures Surgical History Date Name Laterality Status Provider Name and Address Organization Details Recorded Time 5 08186: Spinal manipulation , 3 to 4 regions completed Neymar Ayoub DC [address] [place] [address], [place], [address], [facility] 10/06/2024 09:42:26 5 77140: Spinal manipulation , 3 to 4 regions completed Albert Pete DC [address] [place] [address], [place], [address], [facility] 10/03/2024 17:31:18 5 90024: Spinal manipulation , 3 to 4 regions completed Neymar Ayoub DC [address] [facility], [place], [address], [facility] 06/23/2024 13:04:18 5 03509: Spinal manipulation , 3 to 4 regions completed Neymar Ayoub DC [address] [facility], [place], [address], [facility] 06/16/2024 09:28:48 5 43308: Spinal manipulation , 3 to 4 regions completed Neymar Ayoub DC [address] [facility], [place], [address], [facility] 06/12/2024 09:37:10 5 71828: Spinal manipulation , 3 to 4 regions completed Neymar Ayoub DC [address] [facility], [place], [address], [facility] 06/09/2024 18:52:18 5 21409: Spinal manipulation , 3 to 4 regions completed Neymar Ayoub DC [address] [facility], [place], [address], [facility] 05/22/2024 10:59:23 5 12165: Spinal manipulation , 3 to 4 regions completed Neymar Ayoub DC [address] [facility], [place], [address], [facility] 05/18/2024 17:27:21 Imaging Results None recorded. Procedure [...] SNOMED-CT Code Diagnosis ICD10 Code Diagnosis Note [id number] FÉLIX Tristan [facility] [address] [facility] [place] [address] 05/18/2024 13:02:22 05/18/2024 18:04:16 Cervical segmental dysfunction 105180165 M99.01 Neck pain 99611313 M54.2 Thoracic s egmental dysfunction 836710646 M99.02 Lumbar seg mental dysfunction 641481903 M99.03 Low back pain 712870395 M54.50 Somatic dy sfunction of sacral spine 276419149 M99.04 [id number] [facility] & [address] [facility] [place] [address] 05/22/2024 10:54:09 05/22/2024 11:05:51 Cervical segmental dysfunction 895700081 M99.01 Neck pain 68978296 M54.2 Thoracic s egmental dysfunction 142212374 M99.02 Lumbar seg mental dysfunction 984329448 M99.03 Low back pain 341834999 M54.50 Somatic dy sfunction of sacral spine 191229331 M99.04 [id number] FÉLIX Tristan[address] [place] [address] 06/09/2024 18:45:50 06/13/2024 10:47:13 Cervical segmental dysfunction 951127244 M99.01 Neck pain 35939281 M54.2 Thoracic s egmental dysfunction 971443845 M99.02 Lumbar seg mental dysfunction 182082108 M99.03 Low back pain 855954807 M54.50 Somatic dy sfunction of sacral spine 796243667 M99.04 [id number] Neymar Ayoub DC [facility] & [address] [place] [address] 06/12/2024 09:18:26 06/12/2024 09:39:17 Cervical segmental dysfunction 971747789 M99.01 Neck pain 68244432 M54.2 Thoracic s egmental dysfunction 424534027 M99.02 Lumbar seg mental dysfunction 636368357 M99.03 Low back pain 630305070 M54.50 Somatic dy sfunction of sacral spine 209502696 M99.04 [id number] Neymar Ayoub DC [facility] T[facility] & [address] [place] [address] 06/16/2024 09:14:30 06/16/2024 09:53:53 Cervical segmental dysfunction 544159547 M99.01 Neck pain 50823896 M54.2 Thoracic s egmental dysfunction 414989852 M99.02 Lumbar seg mental dysfunction 863519514 M99.03 Low back pain 629792788 M54.50 Somatic dy sfunction of sacral spine 498714532 M99.04 [id number] Neymar Ayoub DC [facility] & [address] [place] [address] 06/23/2024 12:46:07 06/23/2024 14:59:13 Cervical segmental dysfunction 247399809 M99.01 Neck pain 71127587 M54.2 Thoracic s egmental dysfunction 259912418 M99.02 Lumbar seg mental dysfunction 192294772 M99.03 Low back pain 323347147 M54.50 Somatic dy sfunction of sacral spine 674862909 M99.04 [id number] Albert Pete DC [facility] & [address] [place] [address] 10/03/2024 16:33:28 10/03/2024 17:34:25 Cervical segmental dysfunction 168900600 M99.01 Neck pain 99647494 M54.2 Thoracic s egmental dysfunction 223349114 M99.02 Lumbar seg mental dysfunction 319272246 M99.03 Lesion of lumbar spine 145925968 M99.01 [id number] Neymar Ayoub DC [facility] & [address] [place] [address] 10/06/2024 09:33:31 10/06/2024 10:06:50 Cervical segmental dysfunction 490977557 M99.01 Neck pain 67101696 M54.2 Thoracic s egmental dysfunction 949039577 M99.02 Lumbar seg mental dysfunction 177108865 M99.03 Lesion of lumbar spine 425755175 M99.01 Low back pain 625747688 M54.50 Somatic dy sfunction of sacral spine 906863793 M99.04 Health Concerns Section Related Observation LastModified by Organization Detai ls LastModified Time None Recorded Concern Status LastModified by Organization Details LastModified Time None Recorded Advance Directives Directive None Recorded Payers Encounter Date Sequence Insurance Name Policy Number Policy Haider Covered Member ID Haider Member ID Guarantor Name 06/12/2024 1 *SELF PAY* Em ap Neely 06/16/2024 1 *SELF PAY* Em ap Neely 06/23/2024 1 *SELF PAY* Em ap Neely 10/03/2024 [facility] Marline Gatesen [id number] Marline Neely 10/06/2024 [facility] Marline Gatesen [id number] Marline Neely Notes Date Note Type Note Provider Name and Address Organization Details Recorded Time 06/12/2024 text/html HPI - Cervical SpineReported bypatient.Location: bilateral Quality:aching; dull Severity:moderate Duration:3 days Timing:gradual Context:atraumatic Alleviating Factors:rest Aggravating Factors:bending; twisting/turning Associated Symptoms:no numbness/tinglingHP I - Lumbar SpineReported bypatient.Location: bilateral; With radiation to knee Quality:aching Severity:moderate Timing:gradual Context:cannot identify Aggravating Factors:twisting; bending/squatting; pushing/pulling Alleviating Factors:rest Neymar Ayoub DC [address] [facility], [address], [facility] 06/12/2024 09:38:14 06/16/2024 text/html HPI - Cervical SpineReported bypatient.Location: bilateral Quality:aching; dull Severity:moderate Duration:3 days Timing:gradual Context:atraumatic Alleviating Factors:rest Aggravating Factors:bending; twisting/turning Associated Symptoms:no numbness/tinglingHP I - Lumbar SpineReported bypatient.Location: bilateral; With radiation to knee Quality:aching Severity:moderate Timing:gradual Context:cannot identify Aggravating Factors:twisting; bending/squatting; pushing/pulling Alleviating Factors:rest Neymar Ayoub, FÉLIX [address] [facility], [place], [address], [facility] 06/16/2024 09:35:44 06/23/2024 text/html HPI - Cervical SpineReported bypatient.Location: bilateral Quality:aching; dull Severity:moderate Duration:3 days Timing:gradual Context:atraumatic Alleviating Factors:rest Aggravating Factors:bending; twisting/turning Associated Symptoms:no numbness/tinglingHP I - Lumbar SpineReported bypatient.Location: bilateral; With radiation to knee Quality:aching Severity:moderate Timing:gradual Context:cannot identify Aggravating Factors:twisting; bending/squatting; pushing/pulling Alleviating Factors:rest Neymar Ayoub, FÉLIX [address] [facility], [place], [address], [facility] 06/23/2024 13:05:50 10/03/2024 text/html HPI - Cervical SpineReported bypatient.Location: left Quality:aching Severity:moderate Duration:2 weeks Timing:gradual Alleviating Factors:ice Aggravating Factors:sitting Associated Symptoms:no numbness/tingling Scot Donis Finchfarrukhludivina, FÉLIX [address] [facility], [place], [address], [facility] 10/03/2024 17:31:29 10/06/2024 text/html HPI - Cervical SpineReported bypatient.Location: left Quality:aching Severity:moderate Duration:2 weeks Timing:gradual Alleviating Factors:ice Aggravating Factors:sitting Associated Symptoms:no numbness/tinglingHP I - Lumbar SpineReported bypatient.Location: right; With radiation to knee Quality:aching Severity:not changing; moderate Timing:cannot identify Duration:chronic Context:cannot identify Aggravating Factors:twisting; bending/squatting Alleviating Factors:rest Neymar Ayoub, FÉLIX [address] [facility], [place], [address], [facility] 10/06/2024 10:05:01 OBGyn Episode No OBEpisode recorded.
--- OUTSIDE RECORDS SUMMARY | 2024-10-06 14:07 | XMS_ITS | Data Portability ---
Author Organization [place] - [employer] e, autoContract - E [employer] [facility] Address [address] [facility] [address] [place] [address] Assessment Encounter Date Assessment Date Assessment LastModified [...] Organization Details Recorded Time Lumbar segmental dysfunction 967090763 Active 2024 Neymra Ayoub DC [address], [place], [address] , [facility] 17:25:53 Cervical segmental dysfunction 060343148 Active 2024 Not Available [facility] 11:22:32 Neck pain 85541860 Active 2024 Not Available [facility] 11:22:32 Thoracic segmental dysfunction 374042762 Active 2024 Neymar Ayoub DC [address] [place] [address], [place], [address] , [facility] 17:25:53 Low back pain 824084054 Active 2024 Not Available [facility] 11:22:32 Somatic dysfunction of sacral spine 296397389 Active 2024 Not Available [facility] 11:22:32 Lesion of lumbar spine 008339833 Active 2024 Albert Pete DC [address] [place] [address], [place], [address] , [facility] 17:30:45 Problem Notes None recorded. Procedures Surgical History Date Name Laterality Status Provider Name and Address Organization Details Recorded Time 5 22020: Spinal manipulation , 3 to 4 regions completed Neymar Ayoub DC [address] [place] [address], [place], [address], [facility] 10/06/2024 09:42:26 5 91392: Spinal manipulation , 3 to 4 regions completed Albert Pete DC [address] [place] [address], [place], [address], [facility] 10/03/2024 17:31:18 5 63847: Spinal manipulation , 3 to 4 regions completed Neymar Ayoub DC [address], [place], [address], [facility] 06/23/2024 13:04:18 5 17959: Spinal manipulation , 3 to 4 regions completed Neymar Ayoub DC [address], [place], [address], [facility] 06/16/2024 09:28:48 5 28125: Spinal manipulation , 3 to 4 regions completed Neymar Ayoub DC [address], [place], [address], [facility] 06/12/2024 09:37:10 5 06486: Spinal manipulation , 3 to 4 regions completed Neymar Ayoub DC [address], [place], [address], [facility] 06/09/2024 18:52:18 5 30043: Spinal manipulation , 3 to 4 regions completed Neymar Ayoub DC [address], [place], [address], [facility] 05/22/2024 10:59:23 5 48167: Spinal manipulation , 3 to 4 regions completed Neymar Ayoub DC [address], [place], [address], [facility] 05/18/2024 17:27:21 Imaging Results [...] SNOMED-CT Code Diagnosis ICD10 Code Diagnosis Note [id number] FÉLIX Tristan [facility] [address] [place] [address] 05/18/2024 13:02:22 05/18/2024 18:04:16 Cervical segmental dysfunction 058260254 M99.01 Neck pain 46384446 M54.2 Thoracic s egmental dysfunction 867337927 M99.02 Lumbar seg mental dysfunction 744693280 M99.03 Low back pain 595903472 M54.50 Somatic dy sfunction of sacral spine 867405407 M99.04 [id number] [facility]IX [facility] & [address] [place] [address] 05/22/2024 10:54:09 05/22/2024 11:05:51 Cervical segmental dysfunction 371765004 M99.01 Neck pain 05335881 M54.2 Thoracic s egmental dysfunction 821718872 M99.02 Lumbar seg mental dysfunction 865266479 M99.03 Low back pain 579760281 M54.50 Somatic dy sfunction of sacral spine 397157721 M99.04 [id number] FÉLIX Tristan[address] [place] [address] 06/09/2024 18:45:50 06/13/2024 10:47:13 Cervical segmental dysfunction 633537553 M99.01 Neck pain 48340293 M54.2 Thoracic s egmental dysfunction 558626479 M99.02 Lumbar seg mental dysfunction 580189537 M99.03 Low back pain 338811632 M54.50 Somatic dy sfunction of sacral spine 338526427 M99.04 [id number] Neymar Ayoub DC [facility] TIC & [address] [place] [address] 06/12/2024 09:18:26 06/12/2024 09:39:17 Cervical segmental dysfunction 626711776 M99.01 Neck pain 23878984 M54.2 Thoracic s egmental dysfunction 330419727 M99.02 Lumbar seg mental dysfunction 113720523 M99.03 Low back pain 112221344 M54.50 Somatic dy sfunction of sacral spine 368322936 M99.04 [id number] Neymar Ayoub DC [facility] TIC & [address] [place] [address] 06/16/2024 09:14:30 06/16/2024 09:53:53 Cervical segmental dysfunction 283838277 M99.01 Neck pain 27593880 M54.2 Thoracic s egmental dysfunction 704823559 M99.02 Lumbar seg mental dysfunction 773007266 M99.03 Low back pain 789567511 M54.50 Somatic dy sfunction of sacral spine 893915724 M99.04 [id number] Neymar Ayoub DC [facility] & [address] [place] [address] 06/23/2024 12:46:07 06/23/2024 14:59:13 Cervical segmental dysfunction 047376284 M99.01 Neck pain 32728418 M54.2 Thoracic s egmental dysfunction 115908937 M99.02 Lumbar seg mental dysfunction 000249058 M99.03 Low back pain 037858495 M54.50 Somatic dy sfunction of sacral spine 848754001 M99.04 [id number] Albert Pete DC [facility] TIC & [address] [place] [address] 10/03/2024 16:33:28 10/03/2024 17:34:25 Cervical segmental dysfunction 512907543 M99.01 Neck pain 75984699 M54.2 Thoracic s egmental dysfunction 649567219 M99.02 Lumbar seg mental dysfunction 339673252 M99.03 Lesion of lumbar spine 618210356 M99.01 [id number] Neymar Ayoub DC [facility] TIC & [address] [place] [address] 10/06/2024 09:33:31 10/06/2024 10:06:50 Cervical segmental dysfunction 803352522 M99.01 Neck pain 97368027 M54.2 Thoracic s egmental dysfunction 420279724 M99.02 Lumbar seg mental dysfunction 461891595 M99.03 Lesion of lumbar spine 427679655 M99.01 Low back pain 651421714 M54.50 Somatic dy sfunction of sacral spine 081570171 M99.04 Health Concerns Section Related Observation LastModified [...] 1 *SELF PAY* Em ap Neely 10/03/2024 [facility] Marline Gatesen [id number] Marline Neely 10/06/2024 [facility] Marline Gatesen [id number] Marline Neely Notes Date Note Type Note Provider Name and Address Organization Details Recorded Time 06/12/2024 text/html HPI - Cervical SpineReported bypatient.Location: bilateral Quality:aching; dull Severity:moderate Duration:3 days Timing:gradual Context:atraumatic Alleviating Factors:rest Aggravating Factors:bending; twisting/turning Associated Symptoms:no numbness/tinglingHP I - Lumbar SpineReported bypatient.Location: bilateral; With radiation to knee Quality:aching Severity:moderate Timing:gradual Context:cannot identify Aggravating Factors:twisting; bending/squatting; pushing/pulling Alleviating Factors:rest Neymar Ayoub DC [address], [address], [facility] 06/12/2024 09:38:14 06/16/2024 text/html HPI - Cervical SpineReported bypatient.Location: bilateral Quality:aching; dull Severity:moderate Duration:3 days Timing:gradual Context:atraumatic Alleviating Factors:rest Aggravating Factors:bending; twisting/turning Associated Symptoms:no numbness/tinglingHP I - Lumbar SpineReported bypatient.Location: bilateral; With radiation to knee Quality:aching Severity:moderate Timing:gradual Context:cannot identify Aggravating Factors:twisting; bending/squatting; pushing/pulling Alleviating Factors:rest Neymar Ayoub, FÉLIX [address], [place], [address], [facility] 06/16/2024 09:35:44 06/23/2024 text/html HPI - Cervical SpineReported bypatient.Location: bilateral Quality:aching; dull Severity:moderate Duration:3 days Timing:gradual Context:atraumatic Alleviating Factors:rest Aggravating Factors:bending; twisting/turning Associated Symptoms:no numbness/tinglingHP I - Lumbar SpineReported bypatient.Location: bilateral; With radiation to knee Quality:aching Severity:moderate Timing:gradual Context:cannot identify Aggravating Factors:twisting; bending/squatting; pushing/pulling Alleviating Factors:rest Neymar Ayoub, FÉLIX [address], [place], [address], [facility] 06/23/2024 13:05:50 10/03/2024 text/html HPI - Cervical SpineReported bypatient.Location: left Quality:aching Severity:moderate Duration:2 weeks Timing:gradual Alleviating Factors:ice Aggravating Factors:sitting Associated Symptoms:no numbness/tingling Scot Donis Finchfarrukhludivina, FÉLIX [address], [place], [address], [facility] 10/03/2024 17:31:29 10/06/2024 text/html HPI - Cervical SpineReported bypatient.Location: left Quality:aching Severity:moderate Duration:2 weeks Timing:gradual Alleviating Factors:ice Aggravating Factors:sitting Associated Symptoms:no numbness/tinglingHP I - Lumbar SpineReported bypatient.Location: right; With radiation to knee Quality:aching Severity:not changing; moderate Timing:cannot identify Duration:chronic Context:cannot identify Aggravating Factors:twisting; bending/squatting Alleviating Factors:rest Neymar Ayoub, FÉLIX [address], [place], [address], [facility] 10/06/2024 10:05:01 OBGyn Episode No OBEpisode recorded.
--- NOTE | 2024-10-06 14:18 | ED.GENADULT ---
HPI - General Adult General Chief complaint: Back Injury/Pain Stated complaint: pain in middle of back Time Seen by Provider: 10/06/24 14:08 History of Present Illness HPI narrative: Patient presents to the emergency department complaining of back pain. Pain has been going on for the last week. Tried healthcare facility administrator initially without relief. Patient states she is unable to function in current state. Had some medications prescribed from urgent care however has not picked them up . 39-year-old woman presenting to the emergency department with complaint of back pain Did go to a chiropractor earlier in the week to maybe a little benefit. Suspicion has been that there was a slipped rib along the spine. Today though with adjustment had much more pain and has continued. Did go to Urgent Care was prescribed prednisone and cyclobenzaprine and then ultimately went to see primary care providers as had been suggested that it might need an MRI but had to leave the appointment early to go picker tender helper her daughter. 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 Does not recall any particular injury but this now has been going on over this last week or so. Any movement causes severe pain in the mid left side back but seems to radiate into adjacent muscles. Related Data Previous Rx's ?Medication ?Instructions ?Recorded albuterol sulfate 90 mcg/actuation 2 puff inhalation Q6H PRN 08/08/22 aerosol inhaler shortness of breath or wheezing #6.7 grams cyclobenzaprine 5 mg tablet 5 mg PO TID PRN muscle spasm #30 10/06/24 tabs Allergies Allergy/AdvReac Type Severity Reaction Status Date / Time No Known Drug Allergies Allergy Verified 10/06/24 14:12 Review of Systems Status of ROS: Reports: 6 or more systems reviewed and unremarkable except as noted in History and below PFSH PFS Social History Smoking Status: Former smoker What tobacco products do you use: cigarettes Smoking quit date/years: <= 15 years ago How often do you have a drink containing alcohol: 4 or more times a week How often do you have six or more drinks on one occasion: Never AUDIT-C Alcohol total score: 4 Non-prescribed substance use: denies use service: No Exam Narrative: Exam Narrative: Pleasant. Clearly very uncomfortable with transitions or other times seems to have some spasm of pain. Seems to be breathing just a little more shallow. Not tachypneic. Not labored. Moving to a standing position for better exam results in a spasm of discomfort. Area of maximal pain appears to be the mid left back in the paraspinal musculature. Level of lower thoracic spine and upper lumbar spine. Generally tense and tender throughout this musculature. No midline back tenderness. No evidence of trauma otherwise. Const: Vital Signs, click to edit/add: Vital Signs - 24 hr 10/06/24 14:07 Temperature 98.4 F Pulse Rate [Right Pulse Oximeter] 74 Respiratory Rate 18 Blood Pressure [Ri ght Upper Arm] 167/103 H Pulse Oximetry 97 Oxygen Delivery Me thod Room Air Documenting provider has reviewed patient's vital signs: yes Course Vital Signs Vital signs: Initial Vital Signs Temperature 98.4 F 10/06/24 14:07 Temperature Source Temporal Artery Scan 10/06/24 14:07 Pulse Rate 74 10/06/24 14:07 Pulse Rhythm Regular 10/06/24 14:07 Pulse Strength 3+ Normal 10/06/24 14:07 Respiratory Rate 18 10/06/24 14:07 Blood Pressure 167/103 H 10/06/24 14:07 Blood Pressure Mean 124 H 10/06/24 14:07 Blood Pressure Position Sitting 10/06/24 14:07 Pulse Oximetry 97 10/06/24 14:07 Oxygen Delivery Method Room Air 10/06/24 14:07 Vital Signs Temperature 98.4 F 10/06/24 14:07 Pulse Rate 74 10/06/24 14:07 Respiratory Rate 18 10/06/24 14:07 Blood Pressure 167/103 H 10/06/24 14:07 Pulse Oximetry 97 10/06/24 14:07 Oxygen Delivery Method Room Air 10/06/24 14:07 Temperature 98.4 F 10/06/24 14:07 Pulse Rate 74 10/06/24 14:07 Respiratory Rate 18 10/06/24 14:07 Blood Pressure 167/103 H 10/06/24 14:07 Pulse Oximetry 97 10/06/24 14:07 Oxygen Delivery Method Room Air 10/06/24 14:07 Medications Administered Medications: Discontinued Medications Generic Name Dose Route Start Last Admin Trade Name Freq PRN Reason Stop Dose Admin Bupivacaine HCl 10 ml 10/06/24 14:34 10/06/24 14:35 Bupivacaine 0.25% 30 Ml INJECTION 10/06/24 14:35 10 ml ONCE ONE Administration Lidocaine 1 patch 10/06/24 15:06 10/06/24 15:17 Lidocaine 5% Patch TRANSDERMA 10/06/24 15:07 1 patch ONCE ONE Administration Protocol Medical Decision Making MDM Narrative Medical decision making narrative: I wonder if may have some slipped rib or facet irritation resulting in secondary muscle spasm. No trauma to suggest more significant process. Chronicity does not suggest indolent lesion and radiation I think is more muscle than actually impinged nerve. I do not have urgently available MRI slot available nor do I think that imaging is critical at this point. Probably low yield x-ray and CT. Discussed alleviating discomfort. Offered injection with bupivacaine which she decided to proceed with. I did inject after risks and benefits were discussed, a total of 4 mL of 0.25% bupivacaine over up for inch area in the low back left paraspinal musculature. Aspirated each time without any blood noted or air. On reassessment is a little bit better but still with pain. Placed a lidocaine patch. Subsequently also placed a fitted abdominal binder. This does seem to help with comfort, support. See patient discharge plan for further discussion See handout for some ideas for stretching. Might consider return to chiropractor. I believe [facility] locally is one that some folks here recommend. Otherwise yes, follow-up with primary care. See how the prednisone works for you. Can take up to 800 mg of ibuprofen or up to 1000 mg of acetaminophen per dose. These can be taken together. Alternative the ibuprofen might be up to 500 mg of naproxen 2 times daily. If this lidocaine patch helps you might be able to find some similar [id number]. Wear this binder for comfort as needed. Medical Records Medical records reviewed: Yes I reviewed the patient's medical records Discharge Plan Discharge Clinical Impression: Thoracic back pain Patient Disposition: Home, Self-Care Condition: Improved Additional Instructions: See handout for some ideas for stretching. Might consider return to chiropractor. I believe [facility] C[facility] locally is one that some folks here recommend. Otherwise yes, follow-up with primary care. See how the prednisone works for you. Can take up to 800 mg of ibuprofen or up to 1000 mg of acetaminophen per dose. These can be taken together. Alternative the ibuprofen might be up to 500 mg of naproxen 2 times daily. If this lidocaine patch helps you might be able to find some similar [id number]. Wear this binder for comfort as needed. Prescriptions: No Action albuterol sulfate 90 mcg/actuation HFA aerosol inhaler 2 puff inhalation Q6H PRN (Reason: shortness of breath or wheezing) Qty: 6.7 0RF cyclobenzaprine 5 mg tablet 5 mg PO TID PRN (Reason: muscle spasm) Qty: 30 0RF Follow Up/Referrals: Alexandria Cespedes MD [Primary Care Provider, Family Practice] Stand Alone Forms: Screwpulp Info Instructions
[2024-10-06] MEDS: BUPIVACAINE 0.25% 30 ML 10 ML INJECTION (14:35)
[2024-10-06] MEDS: LIDOCAINE 5% PATCH 1 PATCH TRANSDERMA (15:17)
== END 2024-10-06 16:15 | disposition home or self-care (01) ==
PROVIDERS: Emergency Provider Family Medicine; PCP Family Medicine
DX: M54.6 Pain in thoracic spine (principal)
CPT/HCPCS: 99283; 99284; A9270; J0665